=== PATIENT | female | born 1950 | race Two or more races ===

== ENCOUNTER → 2024-04-02 | Outpatient (CLI) | payer OTHER, SELFPAY ==
[2024-04-02 09:08] LABS: Cardiac Risk Estimate 6.1 RATIO (3.7-5.6); Cholesterol 221 mg/dL (132-200); HDL Cholesterol 36 mg/dL (40-60); LDL Cholesterol,Calculated 129 mg/dL (0-130); Triglycerides 279 mg/dL (30-150)
== END | disposition home or self-care (01) ==
LOC: COPL 08:02
PROVIDERS: PCP Family Medicine; Referring Provider Family Medicine; Visit Provider Family Medicine
DX: E78.2 Mixed hyperlipidemia (principal)
CPT/HCPCS: 36415; 80061

== ENCOUNTER → 2024-07-12 | Outpatient (CLI) | payer OTHER, SELFPAY ==
--- NOTE | 2024-07-12 14:51 | XR_ITS ---
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
== END | disposition home or self-care (01) ==
PROVIDERS: PCP Family Medicine; Referring Provider Family Medicine; Visit Provider Family Medicine
DX: R10.84 Generalized abdominal pain (principal)
CPT/HCPCS: 74018

== ENCOUNTER → 2024-11-01 | Outpatient (CLI) | payer OTHER, SELFPAY ==
[2024-11-01 16:23] LABS: Anion Gap 9 (7-16); BUN/Creatinine Ratio 22 Ratio (12-20); Blood Urea Nitrogen 24 mg/dL (9-23); Calcium 10.3 mg/dL (8.3-10.6); Carbon Dioxide 26.6 mMol/L (20.0-31.0); Chloride 106 mMol/L (98-107); Creatinine (Component) 1.1 mg/dL (0.6-1.3); Glucose 90 mg/dL (74-106); Osmolality,Calculated 287 (275-295); Potassium 4.0 mMol/L (3.4-5.1); Sodium 142 mMol/L (136-145); eGFR 53 See Note
== END | disposition home or self-care (01) ==
LOC: COPL 14:52
PROVIDERS: PCP Family Medicine; Referring Provider Family Medicine; Visit Provider Family Medicine
DX: E11.9 Type 2 diabetes mellitus without complications (principal)
CPT/HCPCS: 36415; 80048